=== PATIENT | female | born 1965 | race Caucasian/White ===

== ENCOUNTER 2017-04-19 10:00 | Emergency (ER) ==
[2017-04-19 10:04] VITALS: BP 105/73; TEMP 99; BMI 19.1
--- NOTE | 2017-04-19 10:51 | ED.PDOC ---
General ED Provider: Dr. GREGG RIVERA Chief Complaint: Sore Throat Stated Complaint: Severe sore throat and respiratory congestion. Onset 3 days. 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 Time Seen by Physician: 10:45 Mode of Arrival: Walk-In Information Source: Patient Exam Limitations: No limitations Referred to ED by: Other (Self) Nursing and Triage Documentation Reviewed and Agree: Yes Reviewed sepsis parameters & appropriate labs ordered?: Yes System Inflammatory Response Syndrome: Not Applicable Sepsis Protocol: For patient's 13 years and over: Temp is 96.8 and below OR 101 and greater Pulse >90 BPM Resp >20/minute Acutely Altered Mental Status Are patient's symptoms suggestive of a new infection, such as: -Pneumonia -Skin, Soft Tissue -Endocarditis -UTI -Bone, Joint Infection -Implantable Device -Acute Abdominal Infection -Wound Infection -Meningitis -Blood Stream Catheter Infection -Unknown System Inflammatory Response Syndrome: Not Applicable Respiratory Complaint Exam - Respiratory Complaint/Exam Symptoms Are: Still present Timing: Constant Initial Severity: Severe Current Severity: Moderate Location: Throat Character: Reports: Non-productive cough, Dry cough Alleviating: Reports: None Associated Signs and Symptoms: Reports: Sore throat Related History: Reports: Similar episode History of Healthcare-Acquired Pneumonia: No Related Surgical History: Reports: Tracheostomy Respiratory Distress: None Inadequate Respiratory Effort: No Dysphagia Present: Yes Stridor Present: No JVD Present: No Accessory Muscle Use: No Retractions: Not Present Diminished Breath Sounds: Yes Sinus Tenderness: None Grunting Respirations: No Kussmaul Respirations: No Differential Diagnoses: URI, Influenza Review of Systems - Review Of Systems Constitutional: Reports: No symptoms Eyes: Reports: No symptoms Ears, Nose, Mouth, Throat: Reports: Throat pain Respiratory: Reports: Cough Cardiac: Reports: No symptoms GI: Reports: No symptoms : Reports: No symptoms Musculoskeletal: Reports: No symptoms Skin: Reports: No symptoms Neurological: Reports: No symptoms Endocrine: Reports: No symptoms Hematologic/Lymphatic: Reports: No symptoms All Other Systems: Reviewed and Negative Past Medical History - Past Medical History Endocrine: Reports: None Cardiovascular: Reports: None Respiratory: Reports: None (Tracheostomy) Hematological: Reports: None Gastrointestinal: Reports: None Genitourinary: Reports: None Neuro/Psych: Reports: None Musculoskeletal: Reports: None Cancer: Reports: None Last Menstrual Period: N/A - Surgical History General Surgical History: Reports: None - Family History Family History: Reports: None - Social History Smoking Status: Current every day smoker Smoking Cessation Counseling Time: > 3 min - 10 min Hx Substance Use: No Alcohol Screening: None Lives: Alone Physical Exam - Physical Exam Appearance: Ill-appearing, Thin Ill-appearing: Mild Pain Distress: Mild Eyes: ED, EOMI, Conjunctiva clear ENT: Ears normal, Nose normal, Oropharynx normal, TMs Occluded Neck: Supple Respiratory: Airway patent, Breath sounds clear, Breath sounds diminished Cardiovascular: RRR GI/: Soft, Nontender, No masses, Bowel sounds normal Musculoskeletal: Normal strength, ROM intact, No edema Skin: Warm, Dry Neurological: Sensation intact Psychiatric: Affect appropriate Re-Evaluation - Re-Evaluation Time of Re-Evaluation: 11:30 Status: Improved Vital Signs Stable: Yes Appearance: NAD Lungs: Clear Skin: Warm and Dry Neuro: Alert and Oriented X3 CV: RRR Critical Care Note - Critical Care Note Total Time (mins): 0 Course - Course Hematology/Chemistry: 04/19/17 11:00 04/19/17 11:00 Orders, Labs, Meds: Lab Review 04/19/17 04/19/17 04/19/17 10:35 11:00 11:00 WBC 4.24 L RBC 4.48 Hgb 13.9 Hct 40.6 MCV 90.6 MCH 31.0 MCHC 34.2 RDW Coeff of [place] 11.9 Plt Count 242 Immature Gran % (Auto) 0.0 Neut % (Auto) 65.3 Lymph % (Auto) 24.8 [place] % (Auto) 5.9 Eos % (Auto) 2.8 Baso % (Auto) 1.2 Immature Gran # (Auto) 0.0 Neut # 2.8 Lymph # 1.1 [place] # 0.3 L Eos # 0.1 Baso # 0.1 Sodium 142 Potassium 4.7 Chloride 104 Carbon Dioxide 28 Anion Gap 14.7 BUN 11 Creatinine 0.81 Estimated GFR (MDRD) 75.00 BUN/Creatinine Ratio 13.58 Glucose 92 Calcium 9.6 Total Bilirubin 0.3 AST 15 ALT 11 L Alkaline Phosphatase 103 H Total Protein 7.3 Albumin 3.6 Globulin 3.7 Albumin/Globulin Ratio 0.97 Influenza A (Rapid) Negative by naat Influenza B (Rapid) Negative by naat Orders Category Date Time Status CBC W/ AUTO DIFF Stat LAB 04/19/17 11:00 Completed CMP [COMPREHENSIVE METABOLIC PANEL] Stat LAB 04/19/17 11:00 Completed FLU A & B MOLECULAR [FLU A/B MOLECULAR] Stat LAB 04/19/17 10:35 Completed RAPID STREP SCREEN [MOLECULAR GROUP A STREP] Stat LAB 04/19/17 10:35 Completed CHEST, 2 VIEWS PA & LAT Stat RADS 04/19/17 10:51 Completed Vital Signs: Temp Pulse Resp BP Pulse Ox 04/19/17 10:01 99.0 F 80 16 105/73 96 Departure - Departure Time of Disposition: 12:20 Disposition: ADMITTED INPATIENT Discharge Problem: Pharyngitis Condition: Fair Pt referred to PMD for follow-up: No (not available to review) IPMP verified?: No Additional Instructions: Patient signed out AMA before discharge instructions could be given All testing was reviewed and preparing to review and patient stated could not stay as 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
--- NOTE | 2017-04-19 11:32 | DI ---
EXAM: Two views of the chest. History: Chest congestion. Findings: Heart size is normal. No focal consolidation. No appreciable pleural fluid and no pneumo thorax. No acute osseous abnormalities. Tiny 2 mm metallic structure seen projecting over the right lower hemithorax Impression: No acute cardiopulmonary process
== END 2017-04-19 12:15 | disposition other institution (70) ==
LOC: ED 10:00
DX: J02.9 Acute pharyngitis, unspecified (principal); R09.89 Other specified symptoms and signs involving the circulatory and respiratory systems; R05 Cough; F17.210 Nicotine dependence, cigarettes, uncomplicated; Z85.818 Personal history of malignant neoplasm of other sites of lip, oral cavity, and pharynx
CPT/HCPCS: 36415; 80053; 85025; 87502; 87651; 99284

== ENCOUNTER 2017-11-23 15:56 | Outpatient (CLI) | END 2017-11-23 15:57 | disposition home or self-care (01) | LOC: RHC-LAB 15:56 | PROVIDERS: ATTEND Nurse Practitioner Family | DX: J02.9 Acute pharyngitis, unspecified (principal); R63.4 Abnormal weight loss; Z85.819 Personal history of malignant neoplasm of unspecified site of lip, oral cavity, and pharynx | CPT/HCPCS: 36415; 80053; 84443; 85025; 87651 ==

== ENCOUNTER 2018-09-14 09:28 | Emergency (ER) | payer OTHER ==
[2018-09-14 09:33] VITALS: BP 143/66; TEMP 98.9; BMI 25.8
--- NOTE | 2018-09-14 09:50 | ED.PDOC ---
General ED Provider: Dr. JOHNNIE KULKARNI Chief Complaint: Bite Stated Complaint: I have a rash on the right upper chest / shoulder that is itchy red and warm. I have had it for two days. Denies any exopsure to any antigents- poson NICOLAS but thinks she has seen spiders in the home. Also complains of yeast infection on her vagina. Time Seen by Physician: 09:48 Mode of Arrival: Walk-In Information Source: Patient Nursing and Triage Documentation Reviewed and Agree: Yes Does patient meet sepsis criteria?: No System Inflammatory Response Syndrome: Not Applicable Sepsis Protocol: For patient's 13 years and over: Temp is 96.8 and below OR 101 and greater Pulse >90 BPM Resp >20/minute Acutely Altered Mental Status Are patient's symptoms suggestive of a new infection, such as: -Pneumonia -Skin, Soft Tissue -Endocarditis -UTI -Bone, Joint Infection -Implantable Device -Acute Abdominal Infection -Wound Infection -Meningitis -Blood Stream Catheter Infection -Unknown Skin Complaint Exam - Skin Rash/Itching Complaint/Exam Onset/Duration: 2 days Symptoms Are: Still present Initial Severity: Moderate Current Severity: Severe Location: Left shoulder Potential Exposures: Reports: Unknown (but thinks she may been exposed to spiders. ) Prior Treatment: Benadryl Aggravating: Reports: Heat Alleviating: Reports: None Associated Signs and Symptoms: Denies: Difficulty breathing, Fever, Chills Skin Findings: Present: Urticaria Body Picture: 1 - erythematous rash with scratch dacosta from her finger nails. Differential Diagnoses: Contact Dermatitis, Urticaria Review of Systems - Review Of Systems Constitutional: Reports: No symptoms Eyes: Reports: No symptoms Ears, Nose, Mouth, Throat: Reports: No symptoms Respiratory: Reports: No symptoms Cardiac: Reports: No symptoms GI: Reports: No symptoms : Reports: No symptoms Musculoskeletal: Reports: No symptoms Skin: Reports: Rash Neurological: Reports: No symptoms Endocrine: Reports: No symptoms Hematologic/Lymphatic: Reports: No symptoms All Other Systems: Reviewed and Negative Past Medical History - Past Medical History Endocrine: Reports: None Cardiovascular: Reports: None Respiratory: Reports: Other (Trachoestomy ) Hematological: Reports: None Gastrointestinal: Reports: None Genitourinary: Reports: None Neuro/Psych: Reports: None Musculoskeletal: Reports: None Cancer: Reports: Other (Throat ) Last Menstrual Period: none - Surgical History General Surgical History: Reports: Other (SURGICAL REMOVAL OF THROAT CANCER, Tracheostomy ) - Family History Family History: Reports: None - Social History Smoking Status: Current every day smoker Hx Substance Use: No Alcohol Screening: None Physical Exam - Physical Exam Appearance: Ill-appearing Ill-appearing: Mild Eyes: ED, EOMI, Conjunctiva clear Neck: Supple Respiratory: Airway patent, Breath sounds clear, Breath sounds equal, Respirations nonlabored Cardiovascular: RRR, Pulses normal, No rub, No murmur Skin: Warm, Dry Neurological: Alert, Oriented Psychiatric: Anxious Critical Care Note - Critical Care Note Total Time (mins): 0 Course - Course Vital Signs: Temp Pulse Resp BP Pulse Ox 09/14/18 09:28 98.9 F 84 20 143/66 H 98 Departure - Departure Time of Disposition: 09:50 Disposition: HOME SELF-CARE Discharge Problem: Cellulitis of right shoulder, Dermatitis Instructions: Cellulitis (ED), Dermatitis (ED) Condition: Stable Pt referred to PMD for follow-up: Yes IPMP verified?: No Additional Instructions: Take Medications as prescribed Follow up with PCP in 3 days take over the counter Benadryl for Rash and itching. Prescriptions: Cephalexin [Keflex] 500 mg PO Q8HR #30 capsule Fluconazole [Diflucan] 100 mg PO DAILY #1 tablet Prednisone 20 mg PO DAILYWM #5 tablet Allergies/Adverse Reactions: Allergies No Known Allergies Allergy (Verified 09/14/18 09:33) Home Medications: Ambulatory Orders Ibuprofen 800 mg PO PRN PRN 11/23/17 Varenicline Tartrate [Chantix] 1 mg PO BID 11/23/17 Cephalexin [Keflex] 500 mg PO Q8HR #30 capsule 09/14/18 Fluconazole [Diflucan] 100 mg PO DAILY #1 tablet 09/14/18 Prednisone 20 mg PO DAILYWM #5 tablet 09/14/18 Disposition Discussed With: Patient
== END 2018-09-14 10:04 | disposition home or self-care (01) ==
LOC: ED 09:28
DX: L03.113 Cellulitis of right upper limb (principal); L30.9 Dermatitis, unspecified; F17.210 Nicotine dependence, cigarettes, uncomplicated
CPT/HCPCS: 99282